=== PATIENT | male | born 1950 | race Two or more races ===

== ENCOUNTER 2016-10-09 11:49 | Day surgery (SDC) | payer MEDICARE, OTHER ==
[~2016-10-09] VITALS: Ht 175.3 cm; Wt 83.0 kg
[2016-10-09 12:17] VITALS: Ht 175.3 cm; Wt 83.0 kg
[2016-10-09] MEDS ORDERED: lisinopril (12:32)
[2016-10-09] MEDS ORDERED: lipitor (12:32)
[2016-10-09 12:56] VITALS: BP 131/77; PULSE 82; RESP 24
[2016-10-09] MEDS ORDERED: PROPOFOL 60 ML ONE (13:05)
[2016-10-09 14:00] VITALS: BP 119/78; PULSE 75; RESP 19
--- NOTE | 2016-10-09 16:27 | GILP ---
DATE OF PROCEDURE: 10/09/2016 NAME OF PROCEDURES: 1. Esophagogastroduodenoscopy and biopsy. 2. Colonoscopy, biopsy and polypectomy. SURGEON: Danielle Downing MD PREOPERATIVE DIAGNOSES: 1. Abdominal pain. 2. Rectal bleeding. POSTOPERATIVE DIAGNOSES 1. Reflux esophagitis with erosions. 2. Gastritis. 3. Gastric nodule on the gastric antrum and biopsies were taken for histopathology. 4. Colonoscopy all the way to the cecum. 5. Three small colon polyps were removed using the biopsy forceps. 6. A 0.8 mm right colon polyp was removed using the snare and electrocautery. 7. Diverticulosis of the colon. 8. Internal hemorrhoids. INDICATION FOR THE PROCEDURE: Mr. Andre Denton is a 66-year-old male patient who had upper abdomina l pain, not responding to therapy. The patient also had rectal bleeding. The patient was scheduled for endoscopy and colonoscopy for further evaluation. The procedures and possible complications are well explained to the patient. The patient understood and consented to the procedure. DESCRIPTION OF PROCEDURE: Under the influence of anesthesia, the gastroscope was carefully introduc ed into the esophagus and under direct vision, it was advanced to the stomach, into the pylorus, int o the duodenal bulb and descending duodenum. FINDINGS: ESOPHAGUS: The patient had reflux esophagitis with erosions at the lower end. STOMACH: The patient had gastritis. The patient also had a gastric nodule in the antrum and biopsi es were taken for histopathology. DUODENUM: Normal. The colonoscope was carefully introduced in the rectum and under direct vision, it was advanced all the way to the cecum. FINDINGS: The patient had a 0.8 cm polyp in the right colon and it was removed using the snare and electrocautery. The patient was noted to have 3 other small polyps in the right colon, transverse c olon and sigmoid and they were removed using the biopsy forceps. He had internal hemorrhoids. He tolerated the procedures very well and there was no complication from the procedures. At the end of the procedures, he was awake with stable vital signs and he was discharged home to the care of h is family. IMPRESSION: Please see postoperative diagnoses. PLAN: 1. Omeprazole 40 mg p.o. q.a.m. 2. Anusol-HC 2.5% cream b.i.d. 3. Await histopathology reports. 4. Next screening colonoscopy in 5 years. Dictated By: DANIELLE NORIEGA/SUE Conf#: [id number] DID#: [id number] CC: DANIELLE DOWNING MD;*EndCC*
--- NOTE | 2016-10-09 21:50 | CONS ---
DATE OF ADMISSION: 10/09/2016 DATE OF CONSULTATION: TYPE OF CONSULTATION: Preoperative Gastroenterology I thank you very much for this kind referral. HISTORY OF PRESENT ILLNESS: is a 66-year-old male patient who has been referred to me for further evaluation of rectal bleeding. There is no past history of colon neoplasm. The patient states he had last colonoscopy 20 years ago, and no abnormality was detected. His appetite has been good and there is no history of significant weight loss. The patient also complains of epigastric pain, which is not responding to symptomatic medical therapy. There is no past history of peptic ulcer disease. The patient has been taking baby aspirin a day. There is no history of gallstones. He does not have any fever, chills or jaundice. There is no history of liver disease. He is hypertensive. He is not a diabetic. He does not have any heart disease or lung problem. There is no history of kidney disease. He has hyperlipidemia. She also has history of arthritis. He also has history of depression, and he was on antidepressants, which he has discontinued recently. SOCIAL HISTORY: He is a nonsmoker. He does not abuse alcohol. FAMILY HISTORY: Negative for gastrointestinal tract neoplasm. ALLERGIES: THERE IS NO HISTORY OF SIGNIFICANT DRUG ALLERGY. MEDICATIONS: He takes medicine for high blood pressure, cholesterol and arthritis. He does not remember the names. He is on baby aspirin a day. PHYSICAL EXAMINATION: VITAL SIGNS: He is 5 feet 9 inches tall and he weighs 183 pounds, BMI 27, blood pressure 136/78. HEART: Examination of the heart reveals normal first and second heart sounds. LUNGS: Clear. ABDOMEN: Soft without any distention. Liver and spleen are not palpable. There are no masses. There is no focal tenderness. Normal bowel sounds are heard. CENTRAL NERVOUS SYSTEM: Does not reveal any focal neurological deficit. IMPRESSION: 1. Rectal bleeding. 2. The patient states he had a colonoscopy 20 years ago and no abnormality was detected. 3. Rectal examination deferred per the patient's request. It will be done at the time of colonoscopy. 4. Upper abdominal pain, not responding to therapy. 5. The patient is on baby aspirin a day. 6. Rule out peptic ulcer disease. 7. He also takes medicine for arthritis. 8. Hypertension. 9. Hyperlipidemia. 10. History of depression. PLAN: Colonoscopy and upper endoscopy for further evaluation. The procedures and possible complications were well explained to the patient. He understands and consents to the procedures. I thank you once again. With warmest personal regards, Dictated By: DANIELLE NORIEGA/SUE Conf#: [id number] DID#: [id number] CC: DANIELLE DOWNING MD;*EndCC* MTDD
== END 2016-10-09 15:36 | disposition home or self-care (01) ==
LOC: GIL 11:49
PROVIDERS: ATTEND Internal Medicine Gastroenterology
DX: K63.5 Polyp of colon (principal); K21.0 Gastro-esophageal reflux disease with esophagitis; K29.70 Gastritis, unspecified, without bleeding; K57.90 Diverticulosis of intestine, part unspecified, without perforation or abscess without bleeding; K64.8 Other hemorrhoids; I10 Essential (primary) hypertension; E78.5 Hyperlipidemia, unspecified; F32.9 Major depressive disorder, single episode, unspecified
CPT/HCPCS: 88305; 88312